=== PATIENT | male | born 2000 | race Caucasian/White ===

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

== ENCOUNTER 2023-09-22 12:04 | Outpatient (CLI) | payer OTHER, BC, SELFPAY ==
--- NOTE | ~2023-09-22 | XR_ITS ---
EXAMINATION: XR chest 2V 09/22/2023 12:21 INDICATION: Cough PROCEDURE: 2 view chest COMPARISON: 04/23/2020 FINDINGS: The lungs are clear. The cardiomediastinal silhouette is within normal limits. There are no pleural effusions. There is no pneumothorax suspected. IMPRESSION: 1: NO ACUTE CARDIOPULMONARY DISEASE. Reviewed, dictated and finalized at location B.
== END 2023-09-22 12:05 | disposition home or self-care (01) ==
PROVIDERS: PCP Emergency Medicine; Visit Provider Emergency Medicine
DX: R05.9 Cough, unspecified (principal)
CPT/HCPCS: 71046

== ENCOUNTER 2023-12-09 21:31 | Emergency (ER) | payer BC, SELFPAY ==
[2023-12-09 21:53] VITALS: BP 133/57; PULSE 88; RESP 14; TEMP 36.5; O2SAT 99
--- NOTE | 2023-12-09 21:58 | PC.NURSE ---
Wound dressed with wet to dry and wrapped with coban in triage. Bleeding controlled at this time.
[2023-12-10 02:27] VITALS: BP 137/65; PULSE 74; RESP 16; TEMP 36.3; O2SAT 100
[2023-12-10 02:46] VITALS: BP 137/75; PULSE 75; RESP 14; O2SAT 100
--- NOTE | 2023-12-10 03:10 | ED.GENADULT ---
HPI - General Adult General Chief complaint: Wound/Laceration Stated complaint: right thumb lac Time Seen by Provider: 12/10/23 03:04 History of Present Illness HPI narrative: This is a 23-year-old male presenting 36 hours after lacerating the feet are eminence on his right hand. No functional deficits. No swelling redness or fevers. Related Data Allergies Allergy/AdvReac Type Severity Reaction Status Date / Time No Known Allergies Allergy Verified 12/10/23 02:47 [facility] Past Medical History Medical History Asthma Mild intermittent asthma with acute exacerbation Family History Family History Other Diabetes mellitus Social History Social History Smoking status: Never smoker Second hand tobacco smoke exposure: Yes Alcohol intake: never Substance use: never Gender identity (if verbalized by the patient): Male Sexual Orientation (if Verbalized by the Patient): Straight or Heterosexual Spiritual care concerns: No Exam Narrative: APPEARANCE: No apparent distress. Head: atraumatic. EYES: EOMI, NOSE: Atraumatic NECK: Trachea midline RESPIRATORY: No increased rate of breathing CARDIOVASCULAR: RRR, ABDOMINAL: Non-distended MUSCULOSKELETAl: Focal exam of right hand showed full functional status of all fingers. Cap refill less than 2 seconds. NEURO: Alert. Moving 4/4 extremities SKIN:: 2 cm superficial laceration to the thenar eminence since on the right hand PSYCHIATRIC: Normal affect Course Vital Signs Vital signs: Vital Signs Temperature 97.7 F 12/09/23 21:53 Pulse Rate 88 12/09/23 21:53 Respiratory Rate 14 12/09/23 21:53 Blood Pressure 133/57 L 12/09/23 21:53 Pulse Oximetry 99 12/09/23 21:53 Oxygen Delivery Room Air 12/09/23 21:53 Temperature 97.3 F L 12/10/23 02:27 Pulse Rate 75 12/10/23 02:46 Respiratory Rate 14 12/10/23 02:46 Blood Pressure 137/75 12/10/23 02:46 Pulse Oximetry 100 12/10/23 02:46 Oxygen Delivery Room Air 12/09/23 21:53 Medical Decision Making MDM Narrative Medical decision making narrative: -Course: 23-year-old male presenting 36 hours after sustaining laceration is right hand. Risk of infection is very high we close the wound. Dilaudid heal by secondary intention. Wound was cleaned and dressed in the ED. Given course of prophylactic Keflex. Given return instructions for infection. -RX cephalexin 500mg bid x7 days Vital Signs Vital Signs: Vital Signs Temperature 97.7 F 12/09/23 21:53 Pulse Rate 88 12/09/23 21:53 Respiratory Rate 14 12/09/23 21:53 Blood Pressure 133/57 L 12/09/23 21:53 Pulse Oximetry 99 12/09/23 21:53 Oxygen Delivery Room Air 12/09/23 21:53 Temperature 97.3 F L 12/10/23 02:27 Pulse Rate 75 12/10/23 02:46 Respiratory Rate 14 12/10/23 02:46 Blood Pressure 137/75 12/10/23 02:46 Pulse Oximetry 100 12/10/23 02:46 Oxygen Delivery Room Air 12/09/23 21:53 Discharge Plan Discharge Clinical Impression: Laceration Patient Disposition: Home, Self-Care Condition: Stable Instructions: Antibiotic Form, Laceration (ED) Additional Instructions: Please take antibiotics as instructed. Return if develops signs of infection such as redness swelling purulent discharge or foul smell. Try to keep the wound clean. Prescriptions: New cephalexin 500 mg capsule 500 mg PO Q12H Qty: 10 0RF No Action fluticasone propionate 110 mcg/actuation HFA aerosol inhaler 1 puff inhalation Q12H Qty: 12 3RF albuterol sulfate [Proventil HFA] 90 mcg/actuation Hfa Aerosol Inhaler 2 puff inhalation Q6HRT PRN (Reason: Shortness Of Breath) Qty: 6.7 0RF albuterol sulfate 5 mg/mL Solution For Nebulization 2.5 mg INHALATION Q6H PRN (Reason: SOB) Qty: 600 0RF Follow-up/Referrals: Leonela Shore
[2023-12-10] MEDS: CEPHALEXIN 500 MG CAPSULE PO (03:25)
== END 2023-12-10 03:45 | disposition home or self-care (01) ==
PROVIDERS: Emergency Provider Emergency Medicine; PCP Emergency Medicine
DX: S61.411A Laceration without foreign body of right hand, initial encounter (principal); T14.90XA Injury, unspecified, initial encounter; J45.909 Unspecified asthma, uncomplicated
CPT/HCPCS: 99283; A9270

== ENCOUNTER 2024-12-27 19:12 | Emergency (ER) | payer BC, SELFPAY ==
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
[2024-12-27 19:14] VITALS: BP 134/54; PULSE 110; RESP 18; TEMP 36.7; O2SAT 100
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
[2024-12-27 22:59] VITALS: BP 126/78; PULSE 73; RESP 18; O2SAT 99
== END 2024-12-27 23:00 | disposition home or self-care (01) ==
PROVIDERS: Emergency Provider Physician Assistant; PCP Emergency Medicine
DX: S93.401A Sprain of unspecified ligament of right ankle, initial encounter (principal); V87.8XXA Person injured in other specified noncollision transport accidents involving motor vehicle (traffic), initial encounter
CPT/HCPCS: 73610; 99283